=== PATIENT | male | born 1970 | race American Indian/Alaskan Native ===

== ENCOUNTER 2017-01-08 23:56 | Emergency (ER) | payer SELFPAY ==
[2017-01-09 01:14] VITALS: BP 128/86
[2017-01-09] MEDS ORDERED: TORADOL IM ONE (03:22)
[2017-01-09] MEDS ORDERED: NORCO 5/325 PO ONE (03:22)
--- NOTE | 2017-01-09 03:22 | Emergency Department Report ---
- General Chief complaint: Extremity Injury, Lower Stated complaint: INSECT BITE Time Seen by Provider: 01/09/17 03:13 Source: patient Mode of arrival: Ambulatory Limitations: No Limitations - History of Present Illness Initial comments: 46-year-old male presents to the emergency room with complaint of insect bite to his left thigh for last 2 days. He also complains of right ear pain after he cleaned his ear with a Q-tip today. Denies any numbness tingling left lower extremity . Denies any fever. MD complaint: insect bite/sting (left thigh) -: Gradual (two) Tetanus Up to Date: yes Location: LLE (left thigh) Severity: mild Severity scale (0 -10): 2 Quality: dull Consistency: constant Improves with: none Worsens with: palpation, movement Associated symptoms: denies other symptoms Treatments Prior to Arrival: none - Related Data Previous Rx's Medication Instructions Recorded Last Taken Type Cephalexin [Keflex] 500 mg PO Q8HR #24 cap 01/09/17 Unknown Rx Diclofenac Sodium 75 mg PO BID #20 tablet. 01/09/17 Unknown Rx Neomy/Polymyx B/Hc (Otic) Soln 4 drops OTIC TID #1 bottle 01/09/17 Unknown Rx [Cortisporin (Otic) Soln] Sulfamethoxazole/Trimethoprim 1 each PO BID #14 tablet 01/09/17 Unknown Rx [Bactrim DS TAB] traMADol [Ultram] 50 mg PO Q6HR PRN #12 tablet 01/09/17 Unknown Rx Abscess Boil HPI - HPI Chief Complaint: Extremity Injury, Lower Stated Complaint: INSECT BITE Time Seen by Provider: 01/09/17 03:13 History: No Fever, No Pain, No Purulent Drainage, No Numbness, No Foreign Body, No Previous History, No Insect Bite Home Medications: Previous Rx's Medication Instructions Recorded Last Taken Type Cephalexin [Keflex] 500 mg PO Q8HR #24 cap 01/09/17 Unknown Rx Diclofenac Sodium 75 mg PO BID #20 tablet. 01/09/17 Unknown Rx Neomy/Polymyx B/Hc (Otic) Soln 4 drops OTIC TID #1 bottle 01/09/17 Unknown Rx [Cortisporin (Otic) Soln] Sulfamethoxazole/Trimethoprim 1 each PO BID #14 tablet 01/09/17 Unknown Rx [Bactrim DS TAB] traMADol [Ultram] 50 mg PO Q6HR PRN #12 tablet 01/09/17 Unknown Rx ED Review of Systems ROS: Stated complaint: INSECT BITE Other details as noted in HPI Comment: All other systems reviewed and negative Constitutional: denies: chills, fever Eyes: denies: eye pain, eye discharge, vision change ENT: as per HPI, ear pain (right). denies: throat pain Respiratory: denies: cough, shortness of breath, wheezing Cardiovascular: denies: chest pain, palpitations Endocrine: no symptoms reported Gastrointestinal: denies: abdominal pain, nausea, diarrhea Genitourinary: denies: urgency, dysuria Musculoskeletal: as per HPI, other (swollen area to left thigh). denies: back pain, joint swelling, arthralgia Skin: as per HPI, other (abscess). denies: rash, lesions Neurological: denies: headache, weakness, paresthesias Psychiatric: denies: anxiety, depression Hematological/Lymphatic: denies: easy bleeding, easy bruising ED Past Medical Hx - Past Medical History Previous Medical History?: No - Surgical History Past Surgical History?: No - Social History Smoking Status: Current Every Day Smoker Substance Use Type: None - Medications Home Medications: Home Medications Medication Instructions Recorded Confirmed Last Taken Type Cephalexin [Keflex] 500 mg PO Q8HR #24 cap 01/09/17 Unknown Rx Diclofenac Sodium 75 mg PO BID #20 tablet. 01/09/17 Unknown Rx Neomy/Polymyx B/Hc (Otic) Soln 4 drops OTIC TID #1 bottle 01/09/17 Unknown Rx [Cortisporin (Otic) Soln] Sulfamethoxazole/Trimethoprim 1 each PO BID #14 tablet 01/09/17 Unknown Rx [Bactrim DS TAB] traMADol [Ultram] 50 mg PO Q6HR PRN #12 tablet 01/09/17 Unknown Rx ED Physical Exam - General Limitations: No Limitations General appearance: alert, in no apparent distress - Head Head exam: Present: atraumatic, normocephalic - Eye Eye exam: Present: normal appearance - ENT ENT exam: Present: other (right ) - Expanded ENT Exam Expanded TM/Canal exam: Canal Tenderness: Right TM (mild abrasion to external canal) Mouth exam: Present: normal external inspection Teeth exam: Present: normal inspection Throat exam: Positive: normal inspection - Neck Neck exam: Present: normal inspection - Respiratory Respiratory exam: Present: normal lung sounds bilaterally. Absent: respiratory distress - Cardiovascular Cardiovascular Exam: Present: regular rate, normal rhythm. Absent: systolic murmur, diastolic murmur, rubs, gallop - GI/Abdominal GI/Abdominal exam: Present: soft, normal bowel sounds - Rectal Rectal exam: Present: deferred - Extremities Exam Extremities exam: Present: normal inspection - Expanded Lower Extremity Exam Right Hip exam: Present: normal inspection, full ROM Knee exam: Present: normal inspection Lower Leg exam: Present: normal inspection, full ROM Ankle exam: Present: normal inspection, full ROM Foot/Toe exam: Present: normal inspection, full ROM Neuro vascular tendon exam: Present: no vascular compromise - Back Exam Back exam: Present: normal inspection - Neurological Exam Neurological exam: Present: alert, oriented X3 - Psychiatric Psychiatric exam: Present: normal affect, normal mood - Skin Skin exam: Present: warm, dry, intact, normal color. Absent: rash ED Course Vital Signs 01/09/17 01:08 Temperature 98.2 F Pulse Rate 104 H Respiratory 20 Rate Blood Pressure 128/86 O2 Sat by Pulse 100 Oximetry Critical care attestation.: If time is entered above; I have spent that time in minutes in the direct care of this critically ill patient, excluding procedure time. ED Disposition Clinical Impression: Folliculitis barbae Otitis externa of right ear Qualifiers: Otitis externa type: unspecified type Chronicity: acute Qualified Code(s): H60.501 - Unspecified acute noninfective otitis externa, right ear Disposition: DISCHARGED TO HOME OR SELFCARE Is pt being admited?: No Does the pt Need Aspirin: No Condition: Good Instructions: Folliculitis (ED), Otitis Externa (ED) Prescriptions: Cephalexin [Keflex] 500 mg PO Q8HR #24 cap Diclofenac Sodium 75 mg PO BID #[address] Garcia/Polymyx B/Hc (Otic) Soln [Cortisporin (Otic) Soln] 4 drops OTIC TID #1 bottle Sulfamethoxazole/Trimethoprim [Bactrim DS TAB] 1 each PO BID #14 tablet traMADol [Ultram] 50 mg PO Q6HR PRN #12 tablet PRN Reason: Pain Referrals: PRIMARY CARE,MD [Primary Care Provider] - 3-5 Days
[2017-01-09] MEDS ORDERED: BACTRIM DS PO ONE (03:23)
== END 2017-01-09 04:20 | disposition home or self-care (01) ==
LOC: ED 23:56
DX: S70.362A Insect bite (nonvenomous), left thigh, initial encounter (principal); L73.9 Follicular disorder, unspecified; H60.501 Unspecified acute noninfective otitis externa, right ear; F17.200 Nicotine dependence, unspecified, uncomplicated; W57.XXXA Bitten or stung by nonvenomous insect and other nonvenomous arthropods, initial encounter; Y93.9 Activity, unspecified; Y92.9 Unspecified place or not applicable; Y99.9 Unspecified external cause status
CPT/HCPCS: 96372; 99282; J1885